=== PATIENT | female | born 1950 | race Caucasian/White ===

== ENCOUNTER 2018-08-31 23:53 | Emergency (ER) | payer MEDICARE, OTHER ==
[~2018-08-31] VITALS: Ht 157.5 cm; Wt 80.7 kg
[~2018-08-31 23:53] MED LIST: ALBU90OI6; ALBU90OI6 INH; ALPR.25; AMLO5 PO; ASPI81CH PO; Anucort-Hc25 MG RC; CETI5 PO; CONEST.625 PO; Flonase 0.05% N16 GM; HYDACE5 PO; HYDPAM25 PO; Inderal 20 mg T20 MG PO; LEVSOD75 PO; LOSA50 PO; MONT10T PO; MONTELUKAST SOD10 MG PO; Norco 5-325 Ta1 EACH PO
[2018-09-01] MEDS ORDERED: TIZA4 PO (00:10)
[2018-09-01] MEDS ORDERED: ALLEGRA ALLERG180 MG PO (00:11)
[2018-09-01 01:05] LABS: BASOPHILS ABSOLUTE AUTO 0.04 K/mm3 (0.00-0.23); BASOPHILS PERCENT AUTO 1 % (0-2); EOSINOPHILS ABSOLUTE AUTO 0.23 K/mm3 (0.00-0.68); EOSINOPHILS PERCENT AUTO 3 % (0-6); Hematocrit 41.6 % (33.0-51.0); Hemoglobin 13.9 g/dL (11.5-16.0); IMMATURE GRAN ABSOLUTE AUTO 0.02 K/mm3 (0.00-0.10); IMMATURE GRAN PERCENT AUTO 0 % (0-1); LYMPHOCYTES ABSOLUTE AUTO 3.03 K/mm3 (0.84-5.20); LYMPHOCYTES PERCENT AUTO 38 % (21-46); MONOCYTES ABSOLUTE AUTO 0.86 K/mm3 (0.16-1.47); MONOCYTES PERCENT AUTO 11 % (4-13); Mean Corpuscular HGB 30.3 pg (26.0-34.0); Mean Corpuscular HGB Conc 33.4 g/dL (31.5-36.5); Mean Corpuscular Volume 91 fL (80-100); Mean Platelet Volume 10.7 fL (9.1-12.4); NEUTROPHILS ABSOLUTE AUTO 3.72 K/mm3 (1.96-9.15); NEUTROPHILS PERCENT AUTO 47 % (41-73); Platelet Count 261 K/mm3 (150-400); RDW Coefficient Variation 12.2 % (11.7-14.2); RDW Standard Deviation 40.4 fL (35.1-46.3); Red Blood Cell Count 4.59 M/mm3 (3.80-5.20)
[2018-09-01 01:45] LABS: Source, Urine Catheter
[2018-09-01 02:05] LABS: Bilirubin, Urine Neg (Neg); Blood, Urine Neg (Neg); Glucose Qualitative, Urine Neg (Neg); Ketones, Urine 2+ (Neg); Leukocyte Esterase, Urine 3+ (Neg); Nitrite, Urine Neg (Neg); Protein, Urine Neg (Neg); Specific Gravity, Urine 1.025 (1.003-1.022); Urobilinogen, Urine NORM (Normal)
[2018-09-01 02:05] LABS: Alanine Aminotransfer (ALT/SGP 22 U/L (12-78); Albumin, Blood 3.4 g/dL (3.4-5.0); Alk Phos 77 U/L (50-136); Anion Gap 6 mmol/L (6-16); Aspartate Aminotrans (AST/SGOT 13 U/L (12-37); Bilirubin, Total 0.2 mg/dL (0.1-1.0); Blood Urea Nitrogen 23 mg/dL (8-24); Bun/Creatinine Ratio 32.1 (12.0-20.0); CO2, Blood 26 mmol/L (21-32); Chloride, Blood 110 mmol/L (98-108); Creatinine, Blood 0.72 mg/dL (0.40-1.00); Globulin, Blood 3.4 g/dL (2.2-4.0); Glomerular Filtration Rate >60 (60-); Glucose, Blood 90 mg/dL (70-99); Sodium, Blood 142 mmol/L (136-145); Total Protein, Blood 6.8 g/dL (6.4-8.2)
[2018-09-01 02:10] LABS: Appearance, Urine Clear (Clear); Color, Urine Yellow (P-Yellow)
[2018-09-01 02:11] LABS: Bacteria Mod /hpf; Red Blood Cells, Urine 0-2 /hpf (0-2); Squamous Epithelial Cells Few /hpf (Few); White Blood Cells, Urine 50-100 /hpf (0-5)
[2018-09-01] MEDS ORDERED: Miralax17 GM PO (02:26)
[2018-09-01] MEDS ORDERED: Norco 5-325 Ta1 EACH PO (02:26)
[2018-09-01] MEDS ORDERED: CEFP200 PO (02:26)
[2018-10-19] MEDS ORDERED: Colace100 MG PO (11:06)
== END 2018-09-01 02:56 | disposition home or self-care (01) ==
LOC: ER 23:53
PROVIDERS: Physician Assistant
DX: N39.0 Urinary tract infection, site not specified (principal); M25.562 Pain in left knee; Z88.6 Allergy status to analgesic agent; Z79.899 Other long term (current) drug therapy; E03.9 Hypothyroidism, unspecified; J45.909 Unspecified asthma, uncomplicated; I48.91 Unspecified atrial fibrillation
CPT/HCPCS: 29505; 36415; 74176; 80053; 81001; 83690; 85025; 87077; 87086; 87186; 96361-59; 96365-59; 96375-59; 99284-25; A9270; J0696; J2270; J2405; J7030

== ENCOUNTER 2018-09-19 17:31 | Emergency (ER) | payer MEDICARE, OTHER ==
[~2018-09-19] VITALS: Ht 157.5 cm; Wt 81.7 kg
[~2018-09-19 17:31] MED LIST changes: +ALLEGRA ALLERG180 MG PO; +CEFP200 PO; +Miralax17 GM PO; +TIZA4 PO
[2018-09-19 18:25] LABS: Source, Urine Clean Catch
[2018-09-19 18:28] LABS: Bilirubin, Urine Neg (Neg); Blood, Urine Neg (Neg); Glucose Qualitative, Urine Neg (Neg); Ketones, Urine Neg (Neg); Leukocyte Esterase, Urine 2+ (Neg); Nitrite, Urine Neg (Neg); Protein, Urine Neg (Neg); Urobilinogen, Urine NORM (Normal)
[2018-09-19 18:35] LABS: Appearance, Urine Clear (Clear); Color, Urine Yellow (P-Yellow)
[2018-09-19 18:37] LABS: Bacteria Few /hpf; Calcium Oxalate Crystals Few /hpf; Red Blood Cells, Urine 0-2 /hpf (0-2); Squamous Epithelial Cells Few /hpf (Few)
[2018-09-19] MEDS ORDERED: METPRE4DP PO (18:49)
[2018-09-19] MEDS ORDERED: GAVILAX238 GM PO (18:49)
[2018-09-19] MEDS ORDERED: GABA100 PO (18:50)
[2018-09-19] MEDS ORDERED: Valium5 MG PO (19:18)
[2018-09-19] MEDS ORDERED: Roxicodone5 MG PO (19:19)
[2018-10-19] MEDS ORDERED: Colace100 MG PO (11:06)
== END 2018-09-19 19:33 | disposition home or self-care (01) ==
LOC: ER 17:31
PROVIDERS: Physician Assistant
DX: M54.42 Lumbago with sciatica, left side (principal); E03.9 Hypothyroidism, unspecified; I48.91 Unspecified atrial fibrillation; J45.909 Unspecified asthma, uncomplicated; Z88.6 Allergy status to analgesic agent; Z79.899 Other long term (current) drug therapy
CPT/HCPCS: 81001; 87086; 96372; 99283-25; A9270; J1170

== ENCOUNTER 2018-11-02 08:54 | Day surgery (SDC) | payer MEDICARE, OTHER ==
[~2018-11-02] VITALS: Ht 157.5 cm; Wt 83.1 kg
[~2018-11-02 08:54] MED LIST changes: +Colace100 MG PO; +GABA100 PO; +GAVILAX238 GM PO; +METPRE4DP PO; +Roxicodone5 MG PO; +Valium5 MG PO
--- NOTE | 2018-11-02 09:40 | NUR ---
Ambulatory in Day Surgery History, Chart, Medications and Allergies reviewed before start of procedure. Lungs clear T/O to Auscultation. Patient confirms NPO status and agrees with scheduled surgery. Pre-Op teaching done. Pt verbalizes understanding.
--- NOTE | 2018-11-02 16:35 | NUR ---
SUMMARY- PT BACK FROM AROUND 1445- PAIN CONTROLLED WITH DILAUDID. IVF INFUSING. PT ENC TO COUGH AND DEEP BREATH, IS, SATS DROPPED TO 90 WHEN SLEEPING. APPLIED O2 2L. TOLERATING CLEARS. DENIES NAUSEA, BT NORMOACTIVE. HAVING A HARD TIME GETTING URINE STREAM STARTES, WILL F/T. FAMILY AT BEDSIDE.
--- NOTE | 2018-11-02 19:47 | NUR ---
SUMMARY- PT S/P L TKA, ARRIVED JUST AFTER 1300 FROM PACU. SEVERE PAIN AND NAUSEA RELEIVED BY PHENERGAN AND DILAUDID. PT NAPPED FOR A FEW HOURS, RN PLACED O2 ON 2L DURING REST FOR SATS 87%. SCD'S IN USE WIEH TEDS, CATHY WRAP, NO NOTABLE DRAINAGE THROUGH CATHY, ICE MACHINE. PT STATED NUMBNEDD IN PLANTER FOOT AND HEEL INCREASING SINCE ARRIVAL TO FLOOR, FOOT WARM WITH STRONG PEDAL PULSE. LOOSTENED CATHY, PT STATES AN IMPROVEMENT IN SENSATION. REPORTED ALL TO NOC RN. MEDICATED WITH OXYCODONE AND TYLENOL AROUND 1730 WITH SUFFICIENT RELEIF. PT UNABLE TO WORK WITH PT/OT RELATED TO PAIN AND NAUSEA, BUT GOT UP TO BSC, GAIT BELD AND 2 PERSON PIVOT TX, PT ABLE TO BEAR WT WITH SUFFICIENT STRENGTH AND COORDINATION WITH MIN ASSIST TO BSC. VOIDED APPROX 200ML. IVF INFUSING. SUPPORTIVE AND AT BEDSIDE.
[2018-11-03 04:56] LABS: BASOPHILS ABSOLUTE AUTO 0.01 K/mm3 (0.00-0.23); BASOPHILS PERCENT AUTO 0 % (0-2); EOSINOPHILS ABSOLUTE AUTO 0.01 K/mm3 (0.00-0.68); EOSINOPHILS PERCENT AUTO 0 % (0-6); Hematocrit 37.9 % (33.0-51.0); Hemoglobin 12.4 g/dL (11.5-16.0); IMMATURE GRAN ABSOLUTE AUTO 0.05 K/mm3 (0.00-0.10); IMMATURE GRAN PERCENT AUTO 0 % (0-1); LYMPHOCYTES ABSOLUTE AUTO 2.23 K/mm3 (0.84-5.20); LYMPHOCYTES PERCENT AUTO 13 % (21-46); MONOCYTES ABSOLUTE AUTO 1.39 K/mm3 (0.16-1.47); MONOCYTES PERCENT AUTO 8 % (4-13); Mean Corpuscular HGB Conc 32.7 g/dL (31.5-36.5); Mean Corpuscular Volume 92 fL (80-100); Mean Platelet Volume 10.7 fL (9.1-12.4); NEUTROPHILS ABSOLUTE AUTO 12.93 K/mm3 (1.96-9.15); NEUTROPHILS PERCENT AUTO 78 % (41-73); Platelet Count 215 K/mm3 (150-400); RDW Coefficient Variation 12.9 % (11.7-14.2); RDW Standard Deviation 43.2 fL (35.1-46.3); Red Blood Cell Count 4.13 M/mm3 (3.80-5.20); White Blood Cell Count 16.62 K/mm3 (4.00-11.30)
[2018-11-03 05:27] LABS: Anion Gap 6 mmol/L (6-16); Blood Urea Nitrogen 15 mg/dL (8-24); Bun/Creatinine Ratio 22.6 (12.0-20.0); CO2, Blood 26 mmol/L (21-32); Chloride, Blood 109 mmol/L (98-108); Creatinine, Blood 0.66 mg/dL (0.40-1.00); Glomerular Filtration Rate >60 (60-); Glucose, Blood 94 mg/dL (70-99); Potassium, Blood 3.9 mmol/L (3.5-5.5); Sodium, Blood 141 mmol/L (136-145)
--- NOTE | 2018-11-03 07:30 | NUR ---
SUMMARY POD #1 DRSG IS C/D/I, 1 ASSIST TO THE BATHROOM. PAIN & NAUSEA MANAGED PER EMAR. PT C/O N/T IN LEFT LEG BUT STATES SHE HAS THIS AT BASELINE AND IT HAS IMPROVED THROUGH THE NIGHT, SHE IS ABLE TO AMBULATE WITH NO PROBLEMS. TEDS, SCD'S & POLAR PACK IN PLACE. VOIDING WNL. CALL LIGHT IN REACH. REPORT GIVEN TO DAY RN.
[2018-11-03] MEDS ORDERED: XARELTO15 MG PO (11:07)
[2018-11-03] MEDS ORDERED: Percocet 5-3251 EACH PO (11:08)
--- NOTE | 2018-11-03 18:46 | NUR ---
1535 RETURN FROM PT WITH NAUSEA- ZOFRAN GIVEN
--- NOTE | 2018-11-03 18:47 | NUR ---
SUMMARY PATIENT REPORTS PAIN 7-11/18 THROUGHOOUT SHIFT. PATIENT IS MINIMAL STANDBY ASSIST OOB. PATIENTS BECAME ILL WHILE AT BEDSIDE AND WAS SEEN IN [facility] EMERGENCY ROOM AND FOOUND TO BE IN INTERMITTENT ATRIAL FIBRILLATION. PATIENTS VISITED AFTER HE WAS SEEN IN ER AND PATIENT STATES SHE FELT BETTER AFTER SHE KNEW HE HAD BEEN CHECKED. PATIENT IS HOPING TO DISCHARGE TO HOME TOMORROW
--- NOTE | 2018-11-04 06:51 | NUR ---
SHIFT SUMMARY AMBULATED TO BATHROOM SEVERAL TIMES THIS SHIFT WITH STANDBY ASSITANCE, TOLERATED WELL. C/O SEVERE PAIN SEVERAL TIMES, NURSING GAVE PRN MUSCLE RELAXER X1, PT STATES THAT IT HELPED TREMENDIOUSLY. ENCOURAGED TO USE AT HOME WELL WHEN DISCHARGED. DENIES FURTHER NEEDS AT THIS TIME. SAFETY MEASURES IN PLACE. WILL GIVE HANF OFF TO ONCOMING SHIFT USING SBAR.
--- NOTE | 2018-11-04 11:15 | NUR ---
PATIENT D/C'D HOME W/ SO AT THIS TIME. D/C ORDERS REVIEWED BY Chriss AMEZQUITA AND MYSELF. IV TO LFA D/C'D INTACT, SITE CLEAR. TOLERATING PO. PAIN MANAGED WITH PO PAIN MED. VOIDING. NO ACUTE CHANGES.
== END 2018-11-04 11:15 | disposition home or self-care (01) ==
LOC: ORSCMMR 08:54 → ORD 10:30 → SURS 13:05 → ORSCMMR 11-04 11:15 → ORD 11-04 12:15
PROVIDERS: Orthopaedic Surgery
PROC: 0SRD0JA Replacement of Left Knee Joint with Synthetic Substitute, Uncemented, Open Approach (ICD-10-PCS; principal; 2018-11-02 10:30)
DX: M17.12 Unilateral primary osteoarthritis, left knee (principal); I10 Essential (primary) hypertension; E03.9 Hypothyroidism, unspecified; J45.909 Unspecified asthma, uncomplicated; Z79.899 Other long term (current) drug therapy; E66.9 Obesity, unspecified; Z68.33 Body mass index [BMI] 33.0-33.9, adult
CPT/HCPCS: 36415; 73560-LT; 80048; 85025; 86850; 86900; 86901; 88300; 97110; 97116; 97161; 97530; C1776; J0171; J0690; J0735; J1100; J1170; J1885; J2250; J2405; J2550; J2704; J2765; J2795; J3010; J7120

== ENCOUNTER 2018-12-09 11:51 | Day surgery (SDC) | payer MEDICARE, OTHER ==
[~2018-12-09 11:51] MED LIST changes: +Percocet 5-3251 EACH PO; +XARELTO15 MG PO
--- NOTE | 2018-12-09 13:08 | NUR ---
12/09/18 Alicia Joseph MANIPULATION PERFORMED ON PT CRISTEL
--- NOTE | 2018-12-09 14:50 | NUR ---
Patient up to Ambulate independently. Gait steady. Discharge instructions reviewed with patient. Patient verbalizes understanding. Copy given to patient to take home. Patient States Post-Procedure ride home has been arranged. Discharged via wheelchair to private car for ride home. PT PLANS ON RETURNING TO PT TOMORROW. RE-ENFORCED IMPORTANCE OF MAINTAINING MOBILITY TO JOINT. ALL BELONINGS RETURNED TO PATIENT.
== END 2018-12-09 23:38 | disposition home or self-care (01) ==
LOC: ORSCMMR 11:51
PROVIDERS: Orthopaedic Surgery
PROC: 0SSDXZZ Reposition Left Knee Joint, External Approach (ICD-10-PCS; principal; 2018-12-09 12:00)
DX: M24.662 Ankylosis, left knee (principal); Z96.652 Presence of left artificial knee joint; I47.1 Supraventricular tachycardia; I10 Essential (primary) hypertension; Z79.899 Other long term (current) drug therapy
CPT/HCPCS: 73560-LT; J0690; J2250; J2405; J2704; J3010; J7120